=== PATIENT | male | born 1970 | race Caucasian/White ===

== ENCOUNTER 2018-12-09 05:52 | Outpatient (CLI) | payer MEDICARE, OTHER ==
[~2018-12-09] VITALS: Ht 167.6 cm; Wt 97.3 kg
[2018-12-09 06:15] LABS: BASOPHILS 0.5 % (0-2); HEMATOCRIT 39.7 % (42.0-54.0); HEMOGLOBIN 12.9 g/dL (13.5-17.5); IMMATURE GRANULOCYTES 0.2 % (0-5); LYMPHOCYTES 30.1 % (15-50); MCH 27.2 pg (26.0-34.0); MCHC 32.5 g/dL (31.0-37.0); MCV 83.6 fL (80.0-100.0); MONOCYTES 8.3 % (2-11); NEUTROPHILS 56.9 % (40-80); RBC 4.75 10x6/uL (4.20-6.10); RDW 13.8 % (11.5-14.5)
[2018-12-09 06:16] LABS: PLATELET COUNT 230 10x3/uL (130-400)
[2018-12-09 06:27] LABS: INR 0.96 (0.85-1.17); PROTIME 12.3 SECONDS (11.6-15.0)
[2018-12-09 06:28] LABS: APTT 28.9 SECONDS (22.8-39.4)
[2018-12-09 06:32] LABS: CALC OSMOLALITY 279 mosm/kg (275-300); CARBON DIOXIDE 27.9 mmol/L (21.0-32.0); CHLORIDE - SERUM 101 mmol/L (98-107); CREATININE - SERUM 1.1 mg/dL (0.6-1.3); SODIUM 137 mmol/L (136-145); UREA NITROGEN 10 mg/dL (7-18); eGFR NON AFRICAN AMERICAN 76 mL/min (90-120)
[2018-12-09 06:34] LABS: GLUCOSE 221 mg/dL (74-106)
[2018-12-09 07:19] VITALS: BP 137/84; Ht 167.6 cm; Wt 97.3 kg
[2018-12-09] MEDS ORDERED: NEURONTIN600 MG (07:27)
[2018-12-09] MEDS ORDERED: CYCLOBENZAPRINE10 MG PO (07:28)
[2018-12-09] MEDS ORDERED: NUCYNTA ER100 MG PO (07:29)
[2018-12-09] MEDS ORDERED: NORVASC10 MG PO (07:30)
[2018-12-09] MEDS ORDERED: METFORMIN HCL500 M1 PO (07:31)
[2018-12-09] MEDS ORDERED: PIOGLITAZONE15 MG PO (07:31)
[2018-12-09] MEDS ORDERED: CYMBALTA60 MG PO (07:32)
[2018-12-09] MEDS ORDERED: ZETIA10 MG PO (07:33)
[2018-12-09] MEDS ORDERED: DEXILANT60 MG PO (07:33)
[2018-12-09] MEDS ORDERED: MOBIC7.5 MG PO (07:34)
[2018-12-09] MEDS ORDERED: KEPPRA500 MG PO (07:34)
[2018-12-09] MEDS ORDERED: B-12 DOTS500 MCG PO (07:35)
[2018-12-09] MEDS ORDERED: BUSPAR10 MG PO (07:36)
[2018-12-09] MEDS ORDERED: ABILIFY10 MG PO (07:37)
[2018-12-09] MEDS ORDERED: ATIVAN1 MG PO ×2 (07:38→07:40)
[2018-12-09] MEDS ORDERED: ROXICODONE30 MG PO (07:41)
[2018-12-09] MEDS ORDERED: ATARAX 25 MG TA25 MG PO (07:45)
--- NOTE | 2018-12-09 13:12 | NUR ---
1230 IV DC'D, POST OP INSTRUCTIONS GIVEN
== END 2018-12-09 13:00 | disposition home or self-care (01) ==
LOC: D.SP 05:52 → D.CT 13:00
PROVIDERS: Radiology Diagnostic Radiology
DX: K75.81 Nonalcoholic steatohepatitis (NASH) (principal); Z01.812 Encounter for preprocedural laboratory examination